=== PATIENT | female | born 1995 | race Caucasian/White ===

== ENCOUNTER 2024-06-16 13:02 | Emergency (ER) | payer SELFPAY ==
[2024-06-16 13:05] VITALS: BP 145/97; PULSE 72; RESP 16; TEMP 36.7; O2SAT 99; BMI 23.3
--- NOTE | 2024-06-16 13:33 | PC.NURSE ---
DR RODRIGUEZ AT BEDSIDE
--- NOTE | 2024-06-16 13:39 | ED_ITS ---
Discharge Plan Disposition Patient Disposition: Home, Self-Care Prescriptions Prescriptions: New amoxicillin-pot clavulanate 875-125 mg tablet 1 tab PO BID 10 Days Qty: 20 0RF Referrals Follow up/Referrals: Odilon Schmid [Referring] - See instructions Provider,ReferralMD [Primary Care Provider] - See instructions Activity Restrictions/Add. Instructions Additional Instructions/Restrictions: Urgent Care Clinic Location:?[facility], [address] [place] [address] The [facility] ([facility]) is a walk-in clinic for patients, 14 years of age and older, needing immediate care due to dental pain and swelling. Clinic registration is open 7:45-10:30 am, Tuesday through Tuesday (closed on holidays and other dates-see below). Patients are seen on a first come, first served basis and may experience wait times. Services are only available for a select number of patients each day.? ? Patients are evaluated by expert dentists, and treated by dental students. If a patient's needs are too great or do not meet the educational needs of dental students, they may be referred to another dental clinic.? ? Payment Details A $129 evaluation fee, which includes an examination and X-ray, is due upon registration. An additional payment will be required at time of service depending on treatment provided and any insurance benefits.?? Dentistry accepts check, money order, VISA, MasterCard, Discover, and [employer]. 2023[place] [place] Dates *Dates are subject to change. Please check our Facebook or basestoneaccounts for closure notices.? * May 07 * June 07 * July 09 * August 17 * September 03 * September 11 * September 19 * October 03 * October 29 - November 06 For dental emergencies when other clinic options are closed, call [phone]. Clinical Impressions Clinical Impression: Facial cellulitis, Infected dental caries Print Language Print Language: Kinyarwanda Discharge ED Provider: Cassy Clarke General Adult HPI General Chief complaint: Dental/Oral Stated complaint: Poss. infection in tooth, pain in left side of jaw Time Seen by Provider: 06/16/24 13:32 Mode of Arrival: Ambulatory Limitations: No Limitations Description of Symptoms (Recalled from ER Triage Doc. by RN): PT REPORTS DENTAL PAIN TO LEFT SIDE OF BOTTOM JAW X 1 1/2 WEEKS. History of Present Illness HPI narrative: Is a previously healthy 29-year-old female presenting today with left mandibular pain and swelling. She has had known dental caries for some time but has been increasingly worsening and painful and swelling over the last week. She has not been to the dentist because I am poor. No fevers chills chest pain shortness of breath etc. Related Data Previous Rx's ?Medication ?Instructions ?Recorded amoxicillin 875 mg-potassium 1 tab PO BID 10 days #20 tabs 06/16/24 clavulanate 125 mg tablet Allergies Allergy/AdvReac Type Severity Reaction Status Date / Time No Known Allergies Allergy Verified 06/16/24 13:31 [facility] Disclaimer: The information contained in this section may have been updated after the pat ient was seen, as this information can be updated by other users. Social History Smoking Status: Never smoker alcohol intake: never current occupational status: other Travel in the last 8 weeks: None ROS Obtained: Yes All systems reviewed & no additional complaints except as documented Physical Exam General General appearance: alert ENT ENT exam: Present other (Left mandibular molar extensive dental caries with surrounding erythema swelling at the angle of the mandible) Respiratory Respiratory exam: Present normal lung sounds bilaterally Cardiovascular Cardiovascular exam: Present regular rate Neurological Exam Neurological exam: Present alert Medical Decision Making Akbar Inquiry Pt receiving controlled substance: No Vital Signs: 06/16/24 13:05 Temperature 98.0 F Temperature Source Oral Pulse Rate [Radial] 72 Respiratory Rate 16 Blood Pressure [Left Arm] 145/97 H Blood Pressure Mean [Left Arm] 113 Blood Pressure Source [Left Arm] Automatic Cuff Blood Pressure Position [Left Arm] Sitting 02 Sat by Pulse Oximetry 99 Oxygen Delivery Method Room Air Orders (Tests/Meds): ED MEDICATIONS Generic Name Dose Route Start Last Admin Trade Name Freq PRN Reason Stop Dose Admin Amoxicillin/Clavulanate Potassium 1 each 06/16/24 13:36 Amoxicillin/Clavulanate Potassium 875/125mg Tablet PO 06/16/24 13:37 ONCE ONE Medical Decision Narrative: 29-year-old with infected dental caries and facial cellulitis that is mild. I do not see any definitive fluctuance to drain at the moment. I have given her information for [facility] dental walk-in clinic as well as Dr. Schmid. First dose of Augmentin given prescription sent to her pharmacy and inferior alveolar block performed with successful improvement of her symptoms. Procedures Nerve Block Nerve Block 1: Time out performed: Yes Local Anesthetic: lidocaine 1%, bupivacaine 0.5% and with epi Amount of anesthesia used (mL): 5 Side: Left Intraoral Nerve Block: inferior alveolar Procedure Successful: Yes Patient Tolerated Procedure: well Complications: none Critical Care Critical Care Time Critical Care Time: No
[2024-06-16] MEDS: AMOXICILLIN/CLAVULANATE POTASSIUM 875/125MG TABLET 1 EACH PO (13:43)
[2024-06-16 13:47] VITALS: BP 126/78; PULSE 85; RESP 20; TEMP 36.8; O2SAT 96
[2024-06-16] MEDS: BUPIVACAINE 0.5% 30ML VIAL 2.5 MG IJ (13:53)
[2024-06-16] MEDS: LIDOCAINE 1% 10ML MDV 2.5 ML IJ (13:53)
== END 2024-06-16 13:54 | disposition home or self-care (01) ==
PROVIDERS: Emergency Provider Student in an Organized Health Care Education/Training Program
DX: L03.211 Cellulitis of face (principal); R68.84 Jaw pain; K02.9 Dental caries, unspecified; Z59.86 Financial insecurity; Z59.7 Insufficient social insurance and welfare support
CPT/HCPCS: 99283; C9144

== ENCOUNTER 2024-09-27 00:07 | Emergency (ER) | payer SELFPAY ==
--- NOTE | 2024-09-27 00:16 | XR_ITS ---
PROCEDURE INFORMATION: Exam: XR Chest Exam date and time: 09/27/2024 12:53 AM Age: 29 years old Clinical indication: Shortness of breath and wheezing; Additional info: SOA wheezing TECHNIQUE: Imaging protocol: Radiologic exam of the chest. Views: 2 views. COMPARISON: No relevant prior studies available. FINDINGS: Lungs: See Heart/Mediastinum finding. Pleural spaces: No pneumothorax. Heart/Mediastinum: Perihilar opacities/fullness, nonspecific possibly infectious/inflammatory, cannot exclude hilar lymphadenopathy. Bones/joints: No acute osseous findings. IMPRESSION: Perihilar opacities/fullness, nonspecific possibly infectious/inflammatory, cannot exclude hilar lymphadenopathy. Consider correlation with CT chest with intravenous contrast.
--- NOTE | 2024-09-27 00:18 | ED_ITS ---
Discharge Plan Disposition Patient Disposition: Home, Self-Care Condition: Good Prescriptions Prescriptions: New prednisone 50 mg tablet 50 mg PO DAILY 5 Days Qty: 5 0RF No Action amoxicillin-pot clavulanate 875-125 mg tablet 1 tab PO BID 10 Days Qty: 20 0RF Referrals Follow up/Referrals: Provider,Referral, [Primary Care Provider] - See instructions Activity Restrictions/Add. Instructions Additional Instructions/Restrictions: You were evaluated in the ER and are appropriate for discharge at this time. Take the provided inhaler 2 puffs every 4 hours for the next 48 hours. Then take the inhaler only as needed. Take the prescribed prednisone as directed once daily for the next 5 days. Follow the results of your viral panel and the patient portal. Make an appointment with your primary care doctor for reevaluation in 2 to 3 days, return to the ER with new, worsening, or otherwise concerning symptoms. Clinical Impressions Clinical Impression: Asthma exacerbation Print Language Print Language: Austrian Discharge ED Provider: Melanie Martinez General Chief Complaint: Shortness of Breath/Dyspnea Stated Complaint: cough, chest pain, trouble breathing, asthma Time Seen by Provider: 09/27/24 00:12 History of Present Illness HPI narrative: 29-year-old female with history of asthma presents to the ER for complaints of shortness of breath, cough, body aches, asthma exacerbation. Patient reports she only has a rescue inhaler and does not take other regular medications for her asthma. She reports on Tuesday she started getting sick with mild cough and congestion, her shortness of breath started to progressively worsen at that time, but tonight it became intolerable. She states in the last 2 days she has probably taken 30 puffs of her albuterol inhaler. Patient reports persistent chest tightness, difficulty breathing, she also reports body aches and diarrhea as well as decreased appetite. She reports in the last 24 hours she tried Mucinex and other adxi-tca-[id number] remedies without significant improvement. No dysuria or hematuria, no vomiting, denies headache, no documented fever but does report sweats, ROS otherwise negative Related Data Previous Rx's ?Medication ?Instructions ?Recorded amoxicillin 875 mg-potassium 1 tab PO BID 10 days #20 tabs 06/16/24 clavulanate 125 mg tablet prednisone 50 mg tablet 50 mg PO DAILY 5 days #5 tabs 09/27/24 Allergies Allergy/AdvReac Type Severity Reaction Status Date / Time No Known Allergies Allergy Verified 06/16/24 13:31 [facility] Disclaimer: The information contained in this section may have been updated after the patient was seen, as this information can be updated by other users. Social History (Updated 06/16/24 @ 13:41 by Cassy Clarke MD) Smoking Status: Never smoker alcohol intake: never current occupational status: other Travel in the last 8 weeks: None ROS Obtained: Yes Systems reviewed as appropriate & no additional complaints except as documented ROS per HPI Physical Exam General General appearance: alert and in no apparent distress Head Head exam: atraumatic and normocephalic Eye Eye exam: Present PERRL and EOMI ENT ENT exam: Present mucous membranes moist Neck Neck exam: Present normal inspection and full ROM; Absent lymphadenopathy Chest Chest inspection: Present symmetric chest wall rise Respiratory Respiratory exam: Present wheezes (Increased work of breathing, wheezing throughout the expiratory phase), prolonged expiratory phase and other (Mild tachypnea); Absent respiratory distress, stridor or accessory muscle use Cardiovascular Cardiovascular exam: Present normal rhythm and tachycardia Abdominal Exam Abdominal exam: Present soft; Absent distention, tenderness, guarding or rebound Extremities Exam Extremities exam: Present full ROM; Absent edema Neurological Exam Neurological exam: Present alert and oriented X3; Absent motor sensory deficit Psychiatric Psychiatric exam: Present normal affect and normal mood Skin Skin exam: Present warm and dry HEART Score HEART Score HEART Score assessment performed?: Yes History (anamnesis): Slightly suspicious ECG: Normal Age: <45 years Risk factors: No known risk factors Troponin: </= normal limit HEART Score: 0 Critical Care Critical Care Time Critical Care Time: No Medical Decision Making Medical Records Medical records reviewed: Yes I reviewed the patient's medical records. MR Comment: Last visit within our system was in June 2024 when patient was evaluated for dental caries and facial cellulitis. She was prescribed Augmentin and discharged. Akbar Inquiry Pt receiving controlled substance: No Vital Signs Vital Signs: 09/27/24 00:19 09/27/24 00:33 09/27/24 00:35 Temperature 99.6 F Temperature Source Oral Pulse Rate 103 H 94 H Pulse Rate [Left Radial] 110 H Respiratory Rate 22 15 Blood Pressure 136/81 Blood Pressure [Right Arm] 141/113 H Blood Pressure Mean [Right Arm] 122 Blood Pressure Source Blood Pressure Source [Right Arm] Automatic Cuff Blood Pressure Position Blood Pressure Position [Right Arm] Sitting 02 Sat by Pulse Oximetry 97 100 Oxygen Delivery Method Room Air 09/27/24 00:47 09/27/24 01:58 Temperature 99.6 F Temperature Source Oral Pulse Rate 115 H 100 H Pulse Rate [Left Radial] Respiratory Rate 18 Blood Pressure 117/74 Blood Pressure [Right Arm] Blood Pressure Mean [Right Arm] Blood Pressure Source Automatic Cuff Blood Pressure Source [Right Arm] Blood Pressure Position Sitting Blood Pressure Position [Right Arm] 02 Sat by Pulse Oximetry Oxygen Delivery Method Room Air Lab Data Labs: Lab Results 09/27/24 00:16: VBG pH 7.36, VBG pCO2 42.1, VBG pO2 38.0, VBG HCO3 23.5, VBG Total CO2 24.8, VBG O2 Saturation 68.9, VBG Base Excess -1.9, VBG Lactic Acid 1.1 09/27/24 00:20: WBC 10.6, RBC 4.64, Hgb 13.4, Hct 39.1, MCV 84.4, MCH 28.8, MCHC 34.1, RDW 14.9, Plt Count 251, MPV 7.6, Neut % (Auto) 79.4, Lymph % (Auto) 10.7, Worth % (Auto) 5.8, Eos % (Auto) 2.9, Baso % (Auto) 1.1, Neut # (Auto) 8.4 H, Lymph # (Auto) 1.1, Worth # (Auto) 0.6, Eos # (Auto) 0.3, Baso # (Auto) 0.1, D- Dimer < 0.25, Sodium 137, Potassium 3.4 L, Chloride 104, Carbon Dioxide 26, Anion Gap 10.4, BUN 10, Creatinine 0.70, Estimated Creat Clear 121, Estimated GFR 99, Est GFR ( Amer) 120, Glucose 107 H, Calcium 8.8, Magnesium 2.0, Total Bilirubin 0.8, AST 24, ALT 17, Alkaline Phosphatase 109, Troponin I < 0.01, Total Protein 8.0, Albumin 4.2, Globulin 3.8 H, Albumin/Globulin Ratio 1.1, Serum HCG, Qual Negative, Chlamy pneumoniae PCR Not detected, Adenovirus (PCR) Not detected, B. pertussis DNA (PCR) Not detected, Coronavirus OC43 (PCR) Not detected, Coronavirus HKU1 (PCR) Not detected, Coronavirus 229E (PCR) Not detected, SARS-CoV-2 (PCR) Not detected, Coronavirus NL63 (PCR) Not detected, HIV 1&2 Antibody Rapid Nonreactive, Human Metapneumovir PCR Not detected, Influenza A (H1) PCR Not detected, Influ A (H1N1/09) PCR Not detected, Influenza A (H3) PCR Not detected, Influenza Type A (PCR) Not detected, Influenza Type B (PCR) Not detected, M. pneumoniae (PCR) Not detected, Parainfluenza 1 (PCR) Not detected, Parainfluenza 2 (PCR) Not detected, Parainfluenza 3 (PCR) Not detected, Parainfluenza 4 (PCR) Detected A, RSV (PCR) Not detected, Entero/Rhino (PCR) Not detected 09/27/24 00:20 09/27/24 00:20 Response Orders (Tests/Meds): ED MEDICATIONS Discontinued Medications Generic Name Dose Route Start Last Admin Trade Name Freq PRN Reason Stop Dose Admin Albuterol Sulfate 2 puff 09/27/24 00:45 09/27/24 00:47 Albuterol-Hfa 90mcg/Puff Inhaler 8gm IH 10/27/24 00:44 2 puff Q4HP PRN Administration Shortness Of Breath Albuterol/Ipratropium 9 ml 09/27/24 00:16 09/27/24 00:30 Ipratropium/Albuterol 3 Ml Neb IH 09/27/24 00:17 9 ml ONCE ONE Administration Sodium Chloride 1,000 mls @ 999 mls/hr 09/27/24 00:18 09/27/24 00:31 Sod Chlor 0.9% 1000ml Bag IV 09/27/24 01:18 999 mls/hr .Q1H1M ONE Administration Methylprednisolone Sodium Succinate 125 mg 09/27/24 00:16 09/27/24 00:31 Methylprednisolone Sod Succ 125mg Vial IV 09/27/24 00:17 125 mg ONCE ONE Administration Miscellaneous 1 unit 09/27/24 00:45 09/27/24 00:48 Aerochamber/Optihaler MC 09/27/24 00:46 1 unit ONCE ONE Administration Ondansetron HCl 4 mg 09/27/24 00:18 09/27/24 00:31 Ondansetron 4mg/2ml Vial IV 09/27/24 00:19 4 mg ONCE ONE Administration Potassium Chloride 20 meq 09/27/24 00:45 09/27/24 00:50 Potassium Chloride 20meq Tab PO 09/27/24 00:46 20 meq ONCE ONE Administration ORDERS Category Date Time Status CXR 2 view (NOT portable) [XR chest 2V] Stat Exams 09/27/24 00:16 Completed CBC w/Auto Diff [Complete Blood Count Auto Diff] Stat Lab 09/27/24 00:20 Completed CMP [Comprehensive Metabolic Panel] Stat Lab 09/27/24 00:20 Completed D-Dimer Stat Lab 09/27/24 00:20 Completed Full Resp Panel w/COVID ([facility]) Routine Lab 09/27/24 00:20 Completed HCG Qualitative, Serum Stat Lab 09/27/24 00:20 Completed HIV (1&2) Antibody Rapid Stat Lab 09/27/24 00:20 Completed Hep C Ab with Reflex to RNA Stat Lab 09/27/24 00:20 Received Magnesium Stat Lab 09/27/24 00:20 Completed Trop I [Troponin I] Stat Lab 09/27/24 00:20 Completed VBG [Venous Blood Gas] Stat RT 09/27/24 00:16 Completed MDM Narrative Medical Decision Narrative: In summary, this 29-year-old female with comorbidities as listed in HPI presents to the emergency department today with cough, congestion, shortness of breath, asthma exacerbation. On initial evaluation patient is tachycardic but otherwise hemodynamically stable, she is mildly tachypneic with prolonged expiratory phase and wheezing but not in respiratory distress, no stridor, saturating 97% on room air, remainder of exam reassuring. Differential diagnosis includes but is not limited to viral syndrome, asthma exacerbation, pneumonia, I did also consider the possibility of ACS and PE though I have significantly lower suspicion for these given patient's onset and duration of symptoms as well as her progression of symptoms in the setting of her history of asthma. Based on these concerns, I ordered serum labs, chest x-ray, cardiac workup, D-dimer. ECG personally interpreted demonstrates sinus tachycardia, rate 101, normal axis, normal DE and QTc, no STEMI. Lead V3 would not machine operator picker but in the absence of pain and no other changes, this isolated lead does not change my interpretation Patient received IV fluids, Zofran, DuoNebs, Solu-Medrol initially for treatment. Labs personally reviewed demonstrate no leukocytosis or anemia, normal platelets, D-dimer undetectable reassuring against PE, no CTA PE indicated, VBG with normal pH, no hypercarbia, normal oxygen, normal lactic. CMP with trace hypokalemia, patient received oral repletion, this is likely secondary to intracellular shifting from albuterol use. Remainder of CMP nonactionable, initial troponin undetectably low at less than 0.01, significantly reassuring against ACS given patient's duration of symptoms. Serial troponin not indicated. test negative. Chest x-ray personally interpreted does not demonstrate any lobar infiltrate, pneumothorax, see radiology read for final interpretation. On reassessment patient has had significant improvement of symptoms since the DuoNeb. MDI was administered and provided to the patient. I prescribed prednisone for outpatient management. Patient is appropriate for discharge at this time. She was instructed to follow the results of her viral panel on the patient portal. Patient was given instructions on symptomatic management, follow up instructions, and return precautions for the emergency department. Patient indicated understanding and was discharged in stable condition. Final results of the viral swab resulted after patient was discharged, she was positive for parainfluenza 4 virus. This does not telephone exchange operator.
[2024-09-27 00:19] VITALS: BP 141/113; PULSE 110; RESP 22; TEMP 37.6; O2SAT 97; BMI 24.5
--- NOTE | 2024-09-27 00:19 | ECG_ITS ---
APPROVED REPORT Exam: Resting ECG HR:101 bpm ECG Measurements Heart Rate 101 AXES IL 186 P 66 QRSd 87 QRS 71 QT 320 T 37 QTc 378 Conclusion SINUS TACHYCARDIA NONSPECIFIC T-WAVE ABNORMALITY ABNORMAL RHYTHM ECG No STEMI, V3 would not fern picker after multiple attempts however this does not change my interpretation at this time since there are no ischemic changes or other abnormalities in any of the other leads, nothing that would be concerning for contiguous or reciprocal abnormalities Electronically signed by : NASIR JEFF, 09/27/2024 06:47:45
[2024-09-27 00:29] LABS: Adenovirus,PCR Not Detected (NotDetected); Bordetella Pertussis Not Detected (NotDetected); Chlamydophila Pneumoniae, PCR Not Detected (NotDetected); Coronavirus 19, PCR Not Detected (NotDetected); Coronavirus 229E Not Detected (NotDetected); Coronavirus NL63 Not Detected (NotDetected); Coronavirus OC43 Not Detected (NotDetected); Coronovirus HKU1,PCR Not Detected (NotDetected); Human Metapneumovirus Not Detected (NotDetected); Influenza A, PCR Not Detected (NotDetected); Influenza AH1, 2009 Not Detected (NotDetected); Influenza AH1, PCR Not Detected (NotDetected); Influenza AH3,PCR Not Detected (NotDetected); Influenza B, PCR Not Detected (NotDetected); Mycoplasma Pneumoniae, PCR Not Detected (NotDetected); Parainfluenza 1, PCR Not Detected (NotDetected); Parainfluenza 2, PCR Not Detected (NotDetected); Parainfluenza 3, PCR Not Detected (NotDetected); Respiratory Syncytial Virus Not Detected (NotDetected); Rhinovirus/Enterovirus Not Detected (NotDetected)
[2024-09-27] MEDS: IPRATROPIUM/ALBUTEROL 3 ML NEB 9 ML IH (00:30)
[2024-09-27] MEDS: 0.9 % SODIUM CHLORIDE 1000ML 1,000 ML 999 ML IV (00:31)
[2024-09-27] MEDS: ONDANSETRON 4MG/2ML VIAL 4 MG IV (00:31)
[2024-09-27] MEDS: METHYLPREDNISOLONE SOD SUCC 125MG VIAL 125 MG IV (00:31)
[2024-09-27 00:33] VITALS: PULSE 103
[2024-09-27 00:33] LABS: Lactate Venous 1.1 mmol/L (0.4-2.0); VBG Base Excess -1.9 mmol/L (-2.4-2.3); VBG HCO3 23.5 mmol/L (23-30); VBG Oxygen Saturation 68.9 % (50-70); VBG PCO2 42.1 mmol/L (35-51); VBG PH 7.36 mmol/L (7.31-7.41); VBG Total CO2 24.8 mmol/L (23-27)
[2024-09-27 00:35] VITALS: BP 136/81; PULSE 94; RESP 15; O2SAT 100
[2024-09-27 00:36] LABS: Albumin Level 4.2 g/dl (3.5-5.0); Chloride 104 mmol/L (98-107); Potassium 3.4 mmoL/L (3.5-5.1); Sodium 137 mmol/L (136-145)
[2024-09-27 00:39] LABS: Alanine Aminotransferase 17 U/L (12-78); Albumin/Globulin Ratio 1.1 (1.1-1.8); Alkaline Phosphatase 109 U/L (38-126); Anion Gap 10.4 mEq/L (5-15); Aspartate Amino Transferase 24 U/L (14-36); Bilirubin,Total 0.8 mg/dl (0.2-1.3); Blood Urea Nitrogen 10 mg/dl (7-17); Carbon Dioxide 26 mmol/L (22.0-30.0); Creatinine Clearance Estimated 121 mL/min (50-200); Estimated Glomerular Filt Rate 99 ml/min (>60); GFR (African American) 120 ML/MIN (>60); Globulin 3.8 g/dL (1.3-3.2)
[2024-09-27 00:40] LABS: Calcium 8.8 mg/dl (8.4-10.2); Glucose 107 mg/dl (74-100)
[2024-09-27 00:47] VITALS: PULSE 115
[2024-09-27 00:47] LABS: Basophils # 0.1 K/mm3 (0-0.2); Basophils % 1.1 % (0.1-2.0); Eosinophils # 0.3 K/mm3 (0.0-0.4); Eosinophils % 2.9 % (0.1-12.0); Hematocrit 39.1 % (37.0-47.0); Hemoglobin 13.4 g/dL (12.2-16.2); Lymphocytes # 1.1 K/mm3 (0.7-4.5); Lymphocytes % 10.7 % (10-50); Mean Corpuscular HGB Conc 34.1 g/dL (31.8-35.4); Mean Corpuscular Hemoglobin 28.8 pg (27.0-31.2); Mean Corpuscular Volume 84.4 fl (81-99); Mean Platelet Volume 7.6 fl (7.4-10.4); Monocytes # 0.6 K/mm3 (0.1-1.0); Monocytes % 5.8 % (1.7-9.3); Neutrophils # 8.4 K/mm3 (1.8-7.8); Neutrophils % 79.4 % (37.0-80.0); Platelet Count 251 K/mm3 (142-424); Red Blood Count 4.64 M/mm3 (4.20-5.40); Red Cell Distribution Width 14.9 % (11.5-17.5); White Blood Count 10.6 K/mm3 (4.8-10.8)
[2024-09-27] MEDS: ALBUTEROL-HFA 90MCG/PUFF INHALER 8GM 2 PUFF IH (00:47)
[2024-09-27] MEDS: AEROCHAMBER/OPTIHALER 1 UNIT MC (00:48)
[2024-09-27] MEDS: POTASSIUM CHLORIDE 20MEQ TAB 20 MEQ PO (00:50)
[2024-09-27 00:52] LABS: Troponin I < 0.01 ng/ml (0.00-0.034)
[2024-09-27 00:55] LABS: HCG Qualitative, Serum Negative (Negative)
[2024-09-27 01:00] LABS: D-Dimer < 0.25 ug/mL (0.0-0.5)
[2024-09-27 01:11] LABS: HIV (1&2) Antibody Rapid NONREACTIVE (NONREACTIVE)
[2024-09-27 01:58] VITALS: BP 117/74; PULSE 100; RESP 18; TEMP 37.6; O2SAT 94
[2024-09-27 02:20] LABS: Parainfluenza 4, PCR Detected (NotDetected)
[2024-09-28 05:24] LABS: HCV Ab Non Reactive (Non Reactive)
== END 2024-09-27 02:06 | disposition home or self-care (01) ==
PROVIDERS: Emergency Provider Emergency Medicine
DX: J45.901 Unspecified asthma with (acute) exacerbation (principal); R06.02 Shortness of breath; R05.9 Cough, unspecified; M79.10 Myalgia, unspecified site; R09.81 Nasal congestion; R19.7 Diarrhea, unspecified; R63.8 Other symptoms and signs concerning food and fluid intake
CPT/HCPCS: 71046; 80053; 82803; 83735; 84484; 84703; 85025; 85378; 86803; 87389; 87633; 93005; 96361; 96374; 96375; 99284; J2405; J2919; J7030; J7620